=== PATIENT | female | born 1965 | race Caucasian/White ===

== ENCOUNTER 2016-11-30 12:10 | Emergency (ER) | payer MEDICARE, OTHER | END 2016-11-30 15:54 | disposition home or self-care (01) | LOC: ER 12:10 | DX: M25.562 Pain in left knee (principal); M79.661 Pain in right lower leg; G89.18 Other acute postprocedural pain; Z96.652 Presence of left artificial knee joint; E11.9 Type 2 diabetes mellitus without complications; I10 Essential (primary) hypertension; F32.9 Major depressive disorder, single episode, unspecified; G62.9 Polyneuropathy, unspecified; J44.9 Chronic obstructive pulmonary disease, unspecified; Z98.84 Bariatric surgery status; Z88.6 Allergy status to analgesic agent; Z79.899 Other long term (current) drug therapy; Z79.84 Long term (current) use of oral hypoglycemic drugs; Z79.82 Long term (current) use of aspirin | CPT/HCPCS: 93971; 99283; 99283-25 ==

== ENCOUNTER 2016-12-11 21:12 | Emergency (ER) | payer MEDICARE, OTHER | END 2016-12-11 21:20 | disposition home or self-care (01) | LOC: ER 21:12 | DX: M25.562 Pain in left knee (principal); G89.18 Other acute postprocedural pain; Z96.652 Presence of left artificial knee joint; Z88.6 Allergy status to analgesic agent | CPT/HCPCS: 99282 ==